=== PATIENT | male | born 2000 | race Caucasian/White ===

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

== ENCOUNTER 2022-03-31 19:06 | Emergency (ER) | payer OTHER ==
[~2022-03-31] VITALS: Ht 180.3 cm; Wt 77.1 kg
[~2022-03-31 19:06] MED LIST changes: +PENVK500 PO
== END 2022-03-31 22:20 | disposition home or self-care (01) ==
LOC: ER 19:06
DX: R04.0 Epistaxis (principal); M79.641 Pain in right hand; F17.290 Nicotine dependence, other tobacco product, uncomplicated
CPT/HCPCS: 73120